=== PATIENT | female | born 1945 | race Caucasian/White ===

== ENCOUNTER 2020-01-14 07:48 | Inpatient (IN) ==
[2020-01-14] MEDS ORDERED: CeFAZolin Syr 2,000MG/20 ML 2,000 MG/20 ML SYRINGE IVPB ONE (08:36)
[2020-01-14] MEDS ORDERED: Dexamethasone 4 MG/ML VIAL ONE (08:38)
[2020-01-14] MEDS ORDERED: Lidocaine -MPF 2% 2 ML VIAL ONE (08:38)
[2020-01-14] MEDS ORDERED: Ondansetron 4 MG/2 ML VIAL ONE (08:38)
[2020-01-14] MEDS ORDERED: *HR* Rocuronium Bromide 50 MG/5 ML VIAL ONE (08:38)
[2020-01-14] MEDS ORDERED: *HR* FentaNYL (PF) 100 MCG/2 ML VIAL ONE (08:38)
[2020-01-14] MEDS ORDERED: *HR* Propofol 200 MG/20 ML VIAL IVP ONE (08:38)
[2020-01-14] MEDS ORDERED: Ipratropium/Albuterol Neb 3 ML IH ONE (08:41)
[2020-01-14] MEDS ORDERED: Famotidine 20 MG/2 ML VIAL IVP ONE (08:41)
[2020-01-14] MEDS ORDERED: Acetaminophen IV 1,000 MG/100 ML INFUS..BTL IVPB ONE (08:41)
[2020-01-14] MEDS ORDERED: Ringers Solution, Lactated 1,000 ML IVC SCH ×2 (08:45→12:39)
[2020-01-14] MEDS ORDERED: Albuterol 2.5 MG/3 ML NEBULIZER IH PRN ×2 (08:48→12:39)
[2020-01-14] MEDS ORDERED: *HR* OxyCODONE Immed Rel 5 MG TABLET PO PRN (08:48)
[2020-01-14] MEDS ORDERED: Ondansetron 4 MG/2 ML VIAL IVP ONE (08:48)
[2020-01-14] MEDS ORDERED: *HR* Promethazine 25 MG/ML VIAL IVP PRN (08:48)
[2020-01-14 09:27] LABS: Adenovirus Not Detected (Not Detect); Coronavirus 229E Not Detected (Not Detect); Coronavirus HKU1 Not Detected (Not Detect); Coronavirus NL63 Not Detected (Not Detect); Coronavirus OC43 Not Detected (Not Detect)
[2020-01-14 09:28] LABS: Bordetella Pertussis Not Detected (Not Detect); Chlamydophila pneumoniae Not Detected (Not Detect); Human Metapneumovirus Not Detected (Not Detect); Human Rhinovirus/Enterovirus Not Detected (Not Detect); Influenza A Subtype 2009 H1 Not Detected (Not Detect); Influenza B Not Detected (Not Detect); Mycoplasma pneumoniae Not Detected (Not Detect); Parainfluenza Virus 1 Not Detected (Not Detect); Parainfluenza Virus 2 Not Detected (Not Detect); Parainfluenza Virus 3 Not Detected (Not Detect); Parainfluenza Virus 4 Not Detected (Not Detect); Respiratory Syncytial Virus Not Detected (Not Detect); SARS-CoV-2 Not Detected (Not Detect)
[2020-01-14] MEDS ORDERED: Lidocaine HCL 4 ML Topical Solution (Laryng-O-Jet Kit Sterile Pak) TP ONE (09:39)
[2020-01-14] MEDS ORDERED: *HR* PHENYLEPHRINE 1,000 MCG/10 ML SYRINGE IVP ONE (10:20)
[2020-01-14] MEDS ORDERED: Ondansetron 4 MG/2 ML VIAL IVP PRN ×2 (11:32→12:39)
[2020-01-14] MEDS ORDERED: *HR* HYDROcodone/Acet 5/325 mg TABLET PO PRN (11:32)
[2020-01-14] MEDS ORDERED: Naloxone 0.4 MG/ML INJ IVP PRN ×2 (11:32→12:39)
[2020-01-14] MEDS: *HR* FentaNYL (PF) 100 MCG/2 ML VIAL IVP PRN ×3 (11:44→12:07)
[2020-01-14] MEDS ORDERED: 0.9 % Sodium Chloride 1,000 ML IVC SCH (11:45)
[2020-01-14] MEDS ORDERED: Ketorolac 15 MG/ML VIAL IVP SCH (12:00)
[2020-01-14] MEDS ORDERED: Ipratropium/Albuterol Neb 3 ML IH SCH (12:00)
[2020-01-14] MEDS: 0.9 % Sodium Chloride 1,000 ML IVC SCH (12:59)
[2020-01-14] MEDS ORDERED: *HR* Heparin 5,000 UNIT/ML VIAL SQ SCH (14:00)
[2020-01-14] MEDS: *HR* Heparin 5,000 UNIT/ML VIAL SQ SCH ×2 (14:14→20:52)
[2020-01-14] MEDS: *HR* HYDROcodone/Acet 5/325 mg TABLET PO PRN (14:14)
[2020-01-14] MEDS ORDERED: Gabapentin 300 MG CAPSULE PO SCH (15:00)
[2020-01-14] MEDS: Ipratropium/Albuterol Neb 3 ML IH SCH ×3 (15:31→23:50)
[2020-01-14] MEDS: Gabapentin 300 MG CAPSULE PO SCH ×2 (16:06→20:52)
[2020-01-14] MEDS: Ketorolac 15 MG/ML VIAL IVP SCH (18:52)
[2020-01-14] MEDS: Sennosides/Docusate Sodium TABLET PO SCH (20:52)
[2020-01-14] MEDS: Famotidine 20 MG TABLET PO SCH (20:52)
[2020-01-14] MEDS: Fluticasone Propionate Nasal 50 MCG/SPRAY BOTTLE NS SCH (20:53)
[2020-01-14] MEDS ORDERED: Sennosides/Docusate Sodium TABLET PO SCH (21:00)
[2020-01-14] MEDS ORDERED: Fluticasone Propionate Nasal 50 MCG/SPRAY BOTTLE NS SCH (21:00)
[2020-01-14] MEDS ORDERED: Famotidine 20 MG TABLET PO SCH (21:00)
[2020-01-15] MEDS: Ketorolac 15 MG/ML VIAL IVP SCH ×4 (00:33→18:12)
[2020-01-15] MEDS: 0.9 % Sodium Chloride 1,000 ML IVC SCH (02:01)
[2020-01-15] MEDS: Ipratropium/Albuterol Neb 3 ML IH SCH ×6 (03:37→23:43)
[2020-01-15] MEDS: *HR* HYDROcodone/Acet 5/325 mg TABLET PO PRN ×3 (04:10→20:55)
[2020-01-15 05:46] LABS: Hematocrit 39.8 % (35.3-44.9); Hemoglobin 12.1 g/dL (11.5-15.4); Mean Corpuscular HGB Conc 30.4 g/dL (31.6-35.5); Mean Corpuscular Volume 88.8 fL (83.0-100.0); Mean Platelet Volume 11.4 fL (9.4-12.4); Platelet Count 185 K/mcL (140-400); Red Blood Count 4.48 M/mcL (3.82-4.97); Red Cell Distribution Width 14.6 % (11.5-14.5); White Blood Count 19.8 K/mcL (4.3-11.1)
[2020-01-15] MEDS: *HR* Heparin 5,000 UNIT/ML VIAL SQ SCH ×3 (06:34→20:55)
[2020-01-15 07:10] LABS: % Iron Saturation 15 % (15-50); BUN/Creatinine Ratio 26 (6-26); Blood Urea Nitrogen 15 mg/dL (8-23); Calcium 9.3 mg/dL (8.6-10.3); Carbon Dioxide 23 mEq/L (23-29); Chloride 99 mEq/L (98-107); Glucose 127 mg/dL (70-105); Iron 49 mcg/dL (50-170); Magnesium 1.5 mg/dL (1.6-2.6); Osmolality,Calculated 280 (280-300); Sodium 134 mEq/L (136-145); Transferrin 234 mg/dL (203-362); eGFR For African Americans > 60 (> 60); eGFR For Non-African Americans > 60 (> 60)
[2020-01-15] MEDS: Sennosides/Docusate Sodium TABLET PO SCH ×2 (07:41→20:40)
[2020-01-15] MEDS: Famotidine 20 MG TABLET PO SCH ×2 (07:41→20:40)
[2020-01-15] MEDS: Gabapentin 300 MG CAPSULE PO SCH ×3 (07:41→20:39)
[2020-01-15] MEDS: Losartan/HCTZ 50-12.5 TABLET PO SCH (07:41)
[2020-01-15] MEDS: Fluticasone Propionate Nasal 50 MCG/SPRAY BOTTLE NS SCH ×2 (07:42→20:41)
[2020-01-15] MEDS: DilTIAZem CD (24hr) 120 MG CAP.ER.24H PO SCH (07:42)
[2020-01-15] MEDS: Furosemide 40 MG TABLET PO SCH (07:42)
[2020-01-15] MEDS ORDERED: (Roflumilast [Daliresp] 500 MCG) PO SCH (09:00)
[2020-01-15] MEDS ORDERED: Furosemide 40 MG TABLET PO SCH (09:00)
[2020-01-15] MEDS ORDERED: Losartan/HCTZ 50-12.5 TABLET PO SCH (09:00)
[2020-01-15] MEDS ORDERED: DilTIAZem CD (24hr) 120 MG CAP.ER.24H PO SCH (09:00)
[2020-01-15] MEDS ORDERED: Roflumilast [Daliresp] 500 MCG PO SCH (09:00)
[2020-01-16] MEDS: Ketorolac 15 MG/ML VIAL IVP SCH ×4 (00:05→17:13)
[2020-01-16] MEDS: Ipratropium/Albuterol Neb 3 ML IH SCH ×6 (04:41→23:27)
[2020-01-16] MEDS: *HR* Heparin 5,000 UNIT/ML VIAL SQ SCH ×3 (05:37→19:41)
[2020-01-16] MEDS: Gabapentin 300 MG CAPSULE PO SCH ×3 (07:59→19:41)
[2020-01-16] MEDS: Losartan/HCTZ 50-12.5 TABLET PO SCH (07:59)
[2020-01-16] MEDS: *HR* HYDROcodone/Acet 5/325 mg TABLET PO PRN ×2 (08:00→19:49)
[2020-01-16] MEDS: DilTIAZem CD (24hr) 120 MG CAP.ER.24H PO SCH (08:01)
[2020-01-16] MEDS: Famotidine 20 MG TABLET PO SCH ×2 (08:01→19:42)
[2020-01-16] MEDS: Furosemide 40 MG TABLET PO SCH (08:01)
[2020-01-16] MEDS: Sennosides/Docusate Sodium TABLET PO SCH ×2 (08:01→19:42)
[2020-01-16] MEDS: Fluticasone Propionate Nasal 50 MCG/SPRAY BOTTLE NS SCH ×2 (08:02→19:42)
[2020-01-17] MEDS: Ketorolac 15 MG/ML VIAL IVP SCH ×2 (00:53→05:01)
[2020-01-17] MEDS: Ipratropium/Albuterol Neb 3 ML IH SCH ×2 (04:02→07:29)
[2020-01-17] MEDS: *HR* Heparin 5,000 UNIT/ML VIAL SQ SCH (05:01)
[2020-01-17 06:33] VITALS: BP 121/57
[2020-01-17] MEDS: DilTIAZem CD (24hr) 120 MG CAP.ER.24H PO SCH (07:43)
[2020-01-17] MEDS: Famotidine 20 MG TABLET PO SCH (07:43)
[2020-01-17] MEDS: Gabapentin 300 MG CAPSULE PO SCH (07:43)
[2020-01-17] MEDS: Sennosides/Docusate Sodium TABLET PO SCH (07:43)
[2020-01-17] MEDS: Furosemide 40 MG TABLET PO SCH (07:43)
[2020-01-17] MEDS: Losartan/HCTZ 50-12.5 TABLET PO SCH (07:43)
[2020-01-17] MEDS: *HR* HYDROcodone/Acet 5/325 mg TABLET PO PRN (07:43)
[2020-01-17] MEDS: Fluticasone Propionate Nasal 50 MCG/SPRAY BOTTLE NS SCH (07:45)
== END 2020-01-17 10:40 | disposition home or self-care (01) | DRG 165 ==
LOC: SAMDAY 07:48 → 2NNU 12:23
PROVIDERS: ADMIT Thoracic Surgery (Cardiothoracic Vascular Surgery); ATTEND Thoracic Surgery (Cardiothoracic Vascular Surgery)

== ENCOUNTER 2020-02-02 16:16 | Inpatient (IN) ==
[2020-02-02] MEDS ORDERED: 0.9 % Sodium Chloride 1,000 ML IVC SCH (19:15)
[2020-02-02 19:39] LABS: Basophils # 0.1 K/mcL (0.0-0.2); Basophils % 0.2 %; Eosinophils % 0.1 %; Hematocrit 42.6 % (35.3-44.9); Hemoglobin 12.8 g/dL (11.5-15.4); Immature Granulocytes % 0.5 % (0-4); Lymphocytes # 1.1 K/mcL (0.6-4.6); Lymphocytes % 4.5 %; Mean Corpuscular Hemoglobin 26.9 pg (28.0-33.3); Mean Corpuscular Volume 89.7 fL (83.0-100.0); Mean Platelet Volume 10.5 fL (9.4-12.4); Monocytes # 1.2 K/mcL (0.0-1.3); Monocytes % 4.7 %; Neutrophils # 22.8 K/mcL (1.6-8.9); Platelet Count 331 K/mcL (140-400); Red Blood Count 4.75 M/mcL (3.82-4.97); Red Cell Distribution Width 14.3 % (11.5-14.5); White Blood Count 25.3 K/mcL (4.3-11.1)
[2020-02-02 19:54] LABS: Toxic Granulation Present (Not Present)
[2020-02-02 19:56] LABS: BUN/Creatinine Ratio 33 (6-26); Blood Urea Nitrogen 25 mg/dL (8-23); Calcium 8.9 mg/dL (8.6-10.3); Carbon Dioxide 35 mEq/L (23-29); Chloride 95 mEq/L (98-107); Glucose 177 mg/dL (70-105); Osmolality,Calculated 289 (280-300); Potassium 4.7 mEq/L (3.5-5.1); Sodium 135 mEq/L (136-145); eGFR For African Americans > 60 (> 60); eGFR For Non-African Americans > 60 (> 60)
[2020-02-02] MEDS: Albumin Human 5% 12.5 GM/250 ML IV.SOLN IVC SCH (21:02)
[2020-02-03] MEDS: Albumin Human 5% 12.5 GM/250 ML IV.SOLN IVC SCH (01:15)
[2020-02-03] MEDS ORDERED: ALPRAZolam 0.25 MG TABLET PO PRN ×2 (10:20→15:45)
[2020-02-03] MEDS ORDERED: Ampicillin/Sulbactam 3,000 MG in 0.9 % Sodium Chloride Mini Bag 100 ML IVPB SCH (10:30)
[2020-02-03] MEDS ORDERED: Budesonide/Formoterol 80/4.5 1 PUFF INH IH SCH (10:45)
[2020-02-03] MEDS ORDERED: *HR* FentaNYL (PF) 100 MCG/2 ML VIAL IVP PRN (11:59)
[2020-02-03] MEDS ORDERED: Ondansetron 4 MG/2 ML VIAL IVP PRN (11:59)
[2020-02-03] MEDS ORDERED: Ipratropium/Albuterol Neb 3 ML IH SCH (12:00)
[2020-02-03] MEDS ORDERED: *HR* FentaNYL (PF) 100 MCG/2 ML VIAL ONE (12:22)
[2020-02-03] MEDS ORDERED: *HR* Propofol 200 MG/20 ML VIAL IVP ONE (12:22)
[2020-02-03] MEDS ORDERED: *HR* Succinylcholine 200 MG/10 ML VIAL IVP ONE (12:23)
[2020-02-03] MEDS ORDERED: Lidocaine -MPF 2% 2 ML VIAL ONE (12:23)
[2020-02-03] MEDS ORDERED: *HR* Rocuronium Bromide 50 MG/5 ML VIAL ONE (12:24)
[2020-02-03] MEDS ORDERED: Acetaminophen IV 1,000 MG/100 ML INFUS..BTL ONE (12:26)
[2020-02-03] MEDS ORDERED: Albumin Human 5% 0 GM/0 ML IV.SOLN ONE (12:37)
[2020-02-03] MEDS ORDERED: *HR* Phenylephrine 10 MG/ML VIAL ONE (12:39)
[2020-02-03] MEDS ORDERED: Dexamethasone 4 MG/ML VIAL ONE (13:33)
[2020-02-03] MEDS ORDERED: Ondansetron 4 MG/2 ML VIAL ONE (13:33)
[2020-02-03] MEDS ORDERED: Naloxone 0.4 MG/ML INJ IVP PRN (15:45)
[2020-02-03] MEDS ORDERED: Ipratropium/Albuterol Neb 3 ML ONE (15:49)
[2020-02-03] MEDS: Ipratropium/Albuterol Neb 3 ML IH SCH ×2 (16:03→19:49)
[2020-02-03] MEDS: 0.9 % Sodium Chloride 1,000 ML IVC SCH (16:10)
[2020-02-03] MEDS: *HR* HYDROcodone/Acet 5/325 mg TABLET PO PRN ×2 (16:10→22:13)
[2020-02-03] MEDS: Gabapentin 300 MG CAPSULE PO SCH ×2 (16:10→20:41)
[2020-02-03] MEDS: Ampicillin/Sulbactam 3,000 MG in 0.9 % Sodium Chloride Mini Bag 100 ML IVPB SCH (18:18)
[2020-02-03] MEDS: Budesonide/Formoterol 80/4.5 1 PUFF INH IH SCH (19:49)
[2020-02-03] MEDS: *HR* Heparin 5,000 UNIT/ML VIAL SQ SCH (20:41)
[2020-02-03] MEDS: Sennosides/Docusate Sodium TABLET PO SCH (20:41)
[2020-02-03] MEDS: Famotidine 20 MG TABLET PO SCH (20:41)
[2020-02-04] MEDS: Ampicillin/Sulbactam 3,000 MG in 0.9 % Sodium Chloride Mini Bag 100 ML IVPB SCH ×4 (00:51→18:12)
[2020-02-04] MEDS: Ipratropium/Albuterol Neb 3 ML IH SCH ×7 (01:18→23:22)
[2020-02-04 02:30] LABS: Hematocrit 29.2 % (35.3-44.9); Hemoglobin 8.7 g/dL (11.5-15.4); Mean Corpuscular HGB Conc 29.8 g/dL (31.6-35.5); Mean Corpuscular Hemoglobin 27.1 pg (28.0-33.3); Mean Platelet Volume 11.3 fL (9.4-12.4); Platelet Count 280 K/mcL (140-400); Red Blood Count 3.21 M/mcL (3.82-4.97); Red Cell Distribution Width 14.5 % (11.5-14.5); White Blood Count 23.4 K/mcL (4.3-11.1)
[2020-02-04 02:48] LABS: BUN/Creatinine Ratio 39 (6-26); Blood Urea Nitrogen 32 mg/dL (8-23); Calcium 8.8 mg/dL (8.6-10.3); Carbon Dioxide 31 mEq/L (23-29); Chloride 97 mEq/L (98-107); Glucose 210 mg/dL (70-105); Magnesium 2.2 mg/dL (1.6-2.6); Osmolality,Calculated 293 (280-300); Sodium 135 mEq/L (136-145); eGFR For African Americans > 60 (> 60); eGFR For Non-African Americans > 60 (> 60)
[2020-02-04] MEDS: 0.9 % Sodium Chloride 1,000 ML IVC SCH ×2 (03:53→15:34)
[2020-02-04] MEDS ORDERED: Talc (sterile) 4 GM, 0.9 % Sodium Chloride 50 ML, Syringe CATH TIP 1 EACH IX ONE (06:00)
[2020-02-04] MEDS: *HR* HYDROcodone/Acet 5/325 mg TABLET PO PRN ×2 (06:23→11:31)
[2020-02-04] MEDS: *HR* Heparin 5,000 UNIT/ML VIAL SQ SCH ×3 (06:24→21:20)
[2020-02-04] MEDS: Budesonide/Formoterol 80/4.5 1 PUFF INH IH SCH ×2 (07:56→20:25)
[2020-02-04] MEDS: Gabapentin 300 MG CAPSULE PO SCH ×3 (08:18→21:20)
[2020-02-04] MEDS: Sennosides/Docusate Sodium TABLET PO SCH ×2 (08:18→21:20)
[2020-02-04] MEDS: Famotidine 20 MG TABLET PO SCH ×2 (08:18→21:20)
[2020-02-04] MEDS ORDERED: DilTIAZem CD (24hr) 120 MG CAP.ER.24H PO SCH ×2 (09:00)
[2020-02-04] MEDS: Albumin Human 5% 12.5 GM/250 ML IV.SOLN IVC SCH ×2 (13:31→19:30)
[2020-02-05] MEDS: Ampicillin/Sulbactam 3,000 MG in 0.9 % Sodium Chloride Mini Bag 100 ML IVPB SCH ×5 (00:12→23:56)
[2020-02-05] MEDS: Ipratropium/Albuterol Neb 3 ML IH SCH ×6 (03:54→23:10)
[2020-02-05] MEDS: 0.9 % Sodium Chloride 1,000 ML IVC SCH ×2 (05:24→12:22)
[2020-02-05] MEDS: *HR* Heparin 5,000 UNIT/ML VIAL SQ SCH ×3 (05:25→21:11)
[2020-02-05 06:28] LABS: BUN/Creatinine Ratio 62 (6-26); Blood Urea Nitrogen 32 mg/dL (8-23); Calcium 8.7 mg/dL (8.6-10.3); Carbon Dioxide 33 mEq/L (23-29); Chloride 100 mEq/L (98-107); Glucose 134 mg/dL (70-105); Osmolality,Calculated 291 (280-300); Potassium 3.9 mEq/L (3.5-5.1); Sodium 136 mEq/L (136-145); eGFR For African Americans > 60 (> 60); eGFR For Non-African Americans > 60 (> 60)
[2020-02-05] MEDS: Budesonide/Formoterol 80/4.5 1 PUFF INH IH SCH ×2 (07:51→23:10)
[2020-02-05] MEDS: Gabapentin 300 MG CAPSULE PO SCH ×3 (08:58→20:40)
[2020-02-05] MEDS: Famotidine 20 MG TABLET PO SCH ×2 (08:58→21:09)
[2020-02-05] MEDS: Sennosides/Docusate Sodium TABLET PO SCH ×2 (08:59→20:40)
[2020-02-05] MEDS: Ondansetron 4 MG/2 ML VIAL IVP PRN ×2 (08:59→17:09)
[2020-02-05] MEDS: *HR* HYDROcodone/Acet 5/325 mg TABLET PO PRN ×2 (09:00→12:55)
[2020-02-05 09:20] LABS: Hematocrit 20.5 % (35.3-44.9); Hemoglobin 6.3 g/dL (11.5-15.4); Mean Corpuscular HGB Conc 30.7 g/dL (31.6-35.5); Mean Corpuscular Hemoglobin 27.8 pg (28.0-33.3); Mean Corpuscular Volume 90.3 fL (83.0-100.0); Mean Platelet Volume 11.5 fL (9.4-12.4); Platelet Count 197 K/mcL (140-400); Red Blood Count 2.27 M/mcL (3.82-4.97); White Blood Count 17.4 K/mcL (4.3-11.1)
[2020-02-05] MEDS ORDERED: 0.9 % Sodium Chloride 250 ML ONE ×2 (10:57→14:21)
[2020-02-05] MEDS ORDERED: Furosemide 20 MG/2 ML VIAL IVP ONE (11:36)
[2020-02-05] MEDS ORDERED: *HR* Propofol 200 MG/20 ML VIAL IVP ONE (15:07)
[2020-02-05] MEDS ORDERED: *HR* Succinylcholine 200 MG/10 ML VIAL IVP ONE (15:07)
[2020-02-05] MEDS ORDERED: Furosemide 20 MG/2 ML VIAL IVP STA (18:50)
[2020-02-05] MEDS ORDERED: Artificial Tears SOLN 15 ML BOTTLE BOTH EYES PRN (19:40)
[2020-02-05] MEDS: Midazolam HCl 50 MG/100 ML IV.SOLN IVC SCH (20:00)
[2020-02-05] MEDS: FentaNYL (PF) 1,000 MCG/100 ML IV.SOLN IVC SCH (20:00)
[2020-02-05 20:47] LABS: ABG Base Excess 10 mEq/L (-2 to 3); ABG HCO3 37 mEq/L (21-27); ABG Oxygen Saturation 100 % (95-98); ABG PCO2 68 mmHg (35-45); ABG PH 7.35 pH Units (7.32-7.45); ABG PO2 191 mmHg (85-104); ABG TCO2 39 mEq/L (20-26); Blood Gas VT 480 cc
[2020-02-05 20:50] LABS: VBG Ionized Calcium 1.04 mmol/L (1.15-1.35)
[2020-02-05 20:52] LABS: Basophils % 0.1 %; Eosinophils % 0.3 %; Hematocrit 27.9 % (35.3-44.9); Hemoglobin 8.8 g/dL (11.5-15.4); Immature Granulocytes % 0.6 % (0-4); Lymphocytes # 0.7 K/mcL (0.6-4.6); Lymphocytes % 4.6 %; Mean Corpuscular HGB Conc 31.5 g/dL (31.6-35.5); Mean Corpuscular Hemoglobin 27.9 pg (28.0-33.3); Mean Corpuscular Volume 88.6 fL (83.0-100.0); Mean Platelet Volume 11.4 fL (9.4-12.4); Monocytes # 1.7 K/mcL (0.0-1.3); Monocytes % 11.5 %; Platelet Count 182 K/mcL (140-400); Red Blood Count 3.15 M/mcL (3.82-4.97); Segmented Neutrophils % 82.9 %; White Blood Count 14.5 K/mcL (4.3-11.1)
[2020-02-05 21:06] LABS: BUN/Creatinine Ratio 53 (6-26); Blood Urea Nitrogen 24 mg/dL (8-23); Calcium 8.4 mg/dL (8.6-10.3); Carbon Dioxide 33 mEq/L (23-29); Chloride 101 mEq/L (98-107); Glucose 117 mg/dL (70-105); Osmolality,Calculated 293 (280-300); Phosphorous 1.7 mg/dL (2.7-4.5); Potassium 3.8 mEq/L (3.5-5.1); Sodium 139 mEq/L (136-145); eGFR For African Americans > 60 (> 60); eGFR For Non-African Americans > 60 (> 60)
[2020-02-05] MEDS: Chlorhexidine Rinse 15 ML MOUTHWASH MM SCH (21:10)
[2020-02-05] MEDS: Artificial Tears SOLN 15 ML BOTTLE BOTH EYES SCH (21:11)
[2020-02-06] MEDS: Artificial Tears SOLN 15 ML BOTTLE BOTH EYES SCH ×7 (00:08→23:49)
[2020-02-06] MEDS ORDERED: 0.9 % Sodium Chloride 1,000 ML IVC ONE (02:23)
[2020-02-06] MEDS: FentaNYL (PF) 1,000 MCG/100 ML IV.SOLN IVC SCH ×2 (03:08→15:14)
[2020-02-06] MEDS: Ipratropium/Albuterol Neb 3 ML IH SCH ×6 (03:47→23:36)
[2020-02-06 04:26] LABS: ABG Base Excess 10 mEq/L (-2 to 3); ABG HCO3 36 mEq/L (21-27); ABG Oxygen Saturation 97 % (95-98); ABG PCO2 65 mmHg (35-45); ABG PH 7.35 pH Units (7.32-7.45); ABG PO2 97 mmHg (85-104); ABG TCO2 38 mEq/L (20-26); Blood Gas VT 480 cc
[2020-02-06 04:52] LABS: Hemoglobin 7.9 g/dL (11.5-15.4); Mean Corpuscular HGB Conc 30.4 g/dL (31.6-35.5); Mean Corpuscular Hemoglobin 27.4 pg (28.0-33.3); Mean Corpuscular Volume 90.3 fL (83.0-100.0); Mean Platelet Volume 11.4 fL (9.4-12.4); Platelet Count 158 K/mcL (140-400); Red Blood Count 2.88 M/mcL (3.82-4.97); Red Cell Distribution Width 15.4 % (11.5-14.5); White Blood Count 8.8 K/mcL (4.3-11.1)
[2020-02-06 05:15] LABS: BUN/Creatinine Ratio 51 (6-26); Blood Urea Nitrogen 23 mg/dL (8-23); Carbon Dioxide 31 mEq/L (23-29); Chloride 104 mEq/L (98-107); Glucose 105 mg/dL (70-105); Osmolality,Calculated 296 (280-300); Potassium 3.8 mEq/L (3.5-5.1); Sodium 141 mEq/L (136-145); eGFR For African Americans > 60 (> 60); eGFR For Non-African Americans > 60 (> 60)
[2020-02-06] MEDS: 0.9 % Sodium Chloride 1,000 ML IVC SCH (05:52)
[2020-02-06] MEDS: *HR* Heparin 5,000 UNIT/ML VIAL SQ SCH ×3 (05:55→22:17)
[2020-02-06] MEDS: Ampicillin/Sulbactam 3,000 MG in 0.9 % Sodium Chloride Mini Bag 100 ML IVPB SCH ×4 (05:55→23:45)
[2020-02-06] MEDS: Famotidine 20 MG TABLET PO SCH ×2 (07:24→20:02)
[2020-02-06] MEDS: DilTIAZem CD (24hr) 120 MG CAP.ER.24H PO SCH (07:24)
[2020-02-06] MEDS: Chlorhexidine Rinse 15 ML MOUTHWASH MM SCH ×2 (07:28→20:02)
[2020-02-06] MEDS: Budesonide/Formoterol 80/4.5 1 PUFF INH IH SCH ×2 (07:44→19:48)
[2020-02-06] MEDS: Pantoprazole 40 MG VIAL IVP SCH (08:12)
[2020-02-06] MEDS: Gabapentin 300 MG CAPSULE PO SCH (08:13)
[2020-02-06] MEDS: Sennosides/Docusate Sodium TABLET PO SCH (08:13)
[2020-02-06] MEDS ORDERED: Potassium Phosphate 44 MEQ in 0.9 % Sodium Chloride 250 ML IVPB ONE (09:23)
[2020-02-06] MEDS: Sennosides/Docusate Sodium TABLET GTUBE SCH (20:03)
[2020-02-06] MEDS: Midazolam HCl 50 MG/100 ML IV.SOLN IVC SCH (20:34)
[2020-02-07] MEDS: 0.9 % Sodium Chloride 1,000 ML IVC SCH ×2 (01:44→19:54)
[2020-02-07] MEDS: Ipratropium/Albuterol Neb 3 ML IH SCH ×6 (03:46→23:45)
[2020-02-07] MEDS: Artificial Tears SOLN 15 ML BOTTLE BOTH EYES SCH ×2 (03:54→07:07)
[2020-02-07 04:41] LABS: Hematocrit 24.7 % (35.3-44.9); Hemoglobin 7.4 g/dL (11.5-15.4); Mean Corpuscular Hemoglobin 27.3 pg (28.0-33.3); Mean Corpuscular Volume 91.1 fL (83.0-100.0); Mean Platelet Volume 11.2 fL (9.4-12.4); Platelet Count 185 K/mcL (140-400); Red Blood Count 2.71 M/mcL (3.82-4.97); Red Cell Distribution Width 15.5 % (11.5-14.5)
[2020-02-07 04:58] LABS: ABG Base Excess 9 mEq/L (-2 to 3); ABG HCO3 35 mEq/L (21-27); ABG Oxygen Saturation 94 % (95-98); ABG PCO2 58 mmHg (35-45); ABG PO2 73 mmHg (85-104); ABG TCO2 37 mEq/L (20-26); Blood Gas VT 500 cc
[2020-02-07 05:00] LABS: BUN/Creatinine Ratio 62 (6-26); Blood Urea Nitrogen 24 mg/dL (8-23); Calcium 8.5 mg/dL (8.6-10.3); Carbon Dioxide 33 mEq/L (23-29); Chloride 105 mEq/L (98-107); Glucose 102 mg/dL (70-105); Osmolality,Calculated 300 (280-300); Potassium 3.7 mEq/L (3.5-5.1); Sodium 143 mEq/L (136-145); eGFR For African Americans > 60 (> 60); eGFR For Non-African Americans > 60 (> 60)
[2020-02-07] MEDS: Ampicillin/Sulbactam 3,000 MG in 0.9 % Sodium Chloride Mini Bag 100 ML IVPB SCH ×4 (05:41→23:49)
[2020-02-07] MEDS: *HR* Heparin 5,000 UNIT/ML VIAL SQ SCH ×3 (05:48→21:57)
[2020-02-07] MEDS: DilTIAZem CD (24hr) 120 MG CAP.ER.24H PO SCH (07:09)
[2020-02-07] MEDS: Budesonide/Formoterol 80/4.5 1 PUFF INH IH SCH ×2 (07:30→19:41)
[2020-02-07] MEDS: Famotidine 20 MG TABLET PO SCH (07:34)
[2020-02-07] MEDS: Sennosides/Docusate Sodium TABLET GTUBE SCH ×2 (07:34→19:54)
[2020-02-07] MEDS: Chlorhexidine Rinse 15 ML MOUTHWASH MM SCH (07:34)
[2020-02-07] MEDS: Pantoprazole 40 MG VIAL IVP SCH (08:00)
[2020-02-07] MEDS ORDERED: Furosemide 40 MG/4 ML VIAL IVP ONE (09:27)
[2020-02-07] MEDS ORDERED: Furosemide 20 MG/2 ML VIAL IVP ONE (18:03)
[2020-02-08] MEDS: Ipratropium/Albuterol Neb 3 ML IH SCH ×6 (03:25→23:42)
[2020-02-08] MEDS: *HR* Heparin 5,000 UNIT/ML VIAL SQ SCH ×3 (05:48→22:06)
[2020-02-08] MEDS: Ampicillin/Sulbactam 3,000 MG in 0.9 % Sodium Chloride Mini Bag 100 ML IVPB SCH ×4 (05:48→23:46)
[2020-02-08 06:52] LABS: Hematocrit 32.3 % (35.3-44.9); Mean Corpuscular Hemoglobin 27.6 pg (28.0-33.3); Mean Corpuscular Volume 91.8 fL (83.0-100.0); Mean Platelet Volume 10.6 fL (9.4-12.4); Platelet Count 240 K/mcL (140-400); Red Blood Count 3.52 M/mcL (3.82-4.97); Red Cell Distribution Width 15.2 % (11.5-14.5)
[2020-02-08 06:58] LABS: Hemoglobin 9.7 g/dL (11.5-15.4); White Blood Count 17.4 K/mcL (4.3-11.1)
[2020-02-08 07:13] LABS: BUN/Creatinine Ratio 62 (6-26); Blood Urea Nitrogen 21 mg/dL (8-23); Calcium 9.6 mg/dL (8.6-10.3); Carbon Dioxide 37 mEq/L (23-29); Chloride 100 mEq/L (98-107); Glucose 90 mg/dL (70-105); Magnesium 1.7 mg/dL (1.6-2.6); Osmolality,Calculated 305 (280-300); Potassium 3.5 mEq/L (3.5-5.1); Sodium 146 mEq/L (136-145); eGFR For African Americans > 60 (> 60); eGFR For Non-African Americans > 60 (> 60)
[2020-02-08] MEDS: *HR* HYDROmorphone (PF) 1 MG/ML SYRINGE IVP PRN (07:19)
[2020-02-08 08:14] LABS: ABG Base Excess 9 mEq/L (-2 to 3); ABG HCO3 35 mEq/L (21-27); ABG Oxygen Saturation 88 % (95-98); ABG PCO2 61 mmHg (35-45); ABG PH 7.37 pH Units (7.32-7.45); ABG PO2 59 mmHg (85-104); ABG TCO2 37 mEq/L (20-26)
[2020-02-08] MEDS: DilTIAZem CD (24hr) 120 MG CAP.ER.24H PO SCH (08:50)
[2020-02-08] MEDS: Sennosides/Docusate Sodium TABLET GTUBE SCH ×2 (08:51→19:50)
[2020-02-08] MEDS: Pantoprazole 40 MG VIAL IVP SCH (08:59)
[2020-02-08] MEDS: MethylPREDNISolone 40 MG/ML VIAL IVP SCH ×3 (08:59→23:48)
[2020-02-08] MEDS: acetaZOLAMIDE 250 MG in Water for inj. (sterile) 5 ML IVP SCH ×3 (09:00→23:47)
[2020-02-08] MEDS: Budesonide/Formoterol 80/4.5 1 PUFF INH IH SCH ×2 (10:30→20:39)
[2020-02-08] MEDS ORDERED: Lidocaine -MPF 1% 5 ML AMPUL INFILT ONE (15:04)
[2020-02-08] MEDS: 0.9 % Sodium Chloride 1,000 ML IVC SCH (19:50)
[2020-02-09] MEDS: Ipratropium/Albuterol Neb 3 ML IH SCH ×5 (04:22→20:19)
[2020-02-09 05:40] LABS: BUN/Creatinine Ratio 67 (6-26); Blood Urea Nitrogen 28 mg/dL (8-23); Calcium 9.6 mg/dL (8.6-10.3); Carbon Dioxide 30 mEq/L (23-29); Chloride 105 mEq/L (98-107); Glucose 118 mg/dL (70-105); Magnesium 1.9 mg/dL (1.6-2.6); Osmolality,Calculated 305 (280-300); Potassium 3.1 mEq/L (3.5-5.1); Sodium 144 mEq/L (136-145); eGFR For African Americans > 60 (> 60); eGFR For Non-African Americans > 60 (> 60)
[2020-02-09 05:42] LABS: Hematocrit 30.8 % (35.3-44.9); Hemoglobin 9.2 g/dL (11.5-15.4); Mean Corpuscular HGB Conc 29.9 g/dL (31.6-35.5); Mean Corpuscular Hemoglobin 27.3 pg (28.0-33.3); Mean Corpuscular Volume 91.4 fL (83.0-100.0); Mean Platelet Volume 11.6 fL (9.4-12.4); Platelet Count 258 K/mcL (140-400); Red Blood Count 3.37 M/mcL (3.82-4.97); Red Cell Distribution Width 15.3 % (11.5-14.5); White Blood Count 19.8 K/mcL (4.3-11.1)
[2020-02-09] MEDS: Ampicillin/Sulbactam 3,000 MG in 0.9 % Sodium Chloride Mini Bag 100 ML IVPB SCH ×4 (05:42→23:54)
[2020-02-09] MEDS: *HR* Heparin 5,000 UNIT/ML VIAL SQ SCH ×3 (05:42→21:11)
[2020-02-09] MEDS ORDERED: Potassium Chloride 40 MEQ/200 ML BAG IVPB PRN (06:17)
[2020-02-09] MEDS: Pantoprazole 40 MG VIAL IVP SCH (07:06)
[2020-02-09] MEDS: MethylPREDNISolone 40 MG/ML VIAL IVP SCH ×3 (07:07→23:54)
[2020-02-09] MEDS: DilTIAZem CD (24hr) 120 MG CAP.ER.24H PO SCH (07:07)
[2020-02-09] MEDS: Sennosides/Docusate Sodium TABLET GTUBE SCH ×2 (07:07→21:10)
[2020-02-09] MEDS: Budesonide/Formoterol 80/4.5 1 PUFF INH IH SCH ×2 (07:37→20:22)
[2020-02-09] MEDS: Potassium Chloride 40 MEQ/200 ML BAG IVPB PRN (08:16)
[2020-02-09] MEDS: *HR* HYDROmorphone (PF) 1 MG/ML SYRINGE IVP PRN (09:42)
[2020-02-09] MEDS: 0.9 % Sodium Chloride 1,000 ML IVC SCH (09:43)
[2020-02-09] MEDS ORDERED: Furosemide 20 MG/2 ML VIAL IVP ONE (11:33)
[2020-02-09] MEDS ORDERED: *HR* HYDROcodone/Acet 5/325 mg TABLET PO PRN (13:46)
[2020-02-09] MEDS: Gabapentin 300 MG CAPSULE PO SCH ×2 (14:27→21:10)
[2020-02-09 17:13] LABS: BUN/Creatinine Ratio 72 (6-26); Blood Urea Nitrogen 34 mg/dL (8-23); Calcium 9.9 mg/dL (8.6-10.3); Carbon Dioxide 30 mEq/L (23-29); Chloride 105 mEq/L (98-107); Glucose 116 mg/dL (70-105); Osmolality,Calculated 309 (280-300); Potassium 3.6 mEq/L (3.5-5.1); Sodium 145 mEq/L (136-145); eGFR For African Americans > 60 (> 60); eGFR For Non-African Americans > 60 (> 60)
[2020-02-10] MEDS: Ipratropium/Albuterol Neb 3 ML IH SCH ×6 (00:15→20:22)
[2020-02-10 04:16] LABS: Hematocrit 26.7 % (35.3-44.9); Hemoglobin 8.2 g/dL (11.5-15.4); Mean Corpuscular HGB Conc 30.7 g/dL (31.6-35.5); Mean Corpuscular Volume 91.1 fL (83.0-100.0); Mean Platelet Volume 11.3 fL (9.4-12.4); Platelet Count 247 K/mcL (140-400); Red Blood Count 2.93 M/mcL (3.82-4.97); Red Cell Distribution Width 15.4 % (11.5-14.5); White Blood Count 16.3 K/mcL (4.3-11.1)
[2020-02-10 05:03] LABS: BUN/Creatinine Ratio 90 (6-26); Blood Urea Nitrogen 35 mg/dL (8-23); Calcium 9.2 mg/dL (8.6-10.3); Carbon Dioxide 30 mEq/L (23-29); Chloride 104 mEq/L (98-107); Glucose 114 mg/dL (70-105); Magnesium 1.8 mg/dL (1.6-2.6); Osmolality,Calculated 303 (280-300); Potassium 3.4 mEq/L (3.5-5.1); Sodium 142 mEq/L (136-145); eGFR For African Americans > 60 (> 60); eGFR For Non-African Americans > 60 (> 60)
[2020-02-10] MEDS: *HR* Heparin 5,000 UNIT/ML VIAL SQ SCH ×3 (05:43→23:13)
[2020-02-10] MEDS: Potassium Chloride 40 MEQ/200 ML BAG IVPB PRN (05:44)
[2020-02-10] MEDS: Ampicillin/Sulbactam 3,000 MG in 0.9 % Sodium Chloride Mini Bag 100 ML IVPB SCH ×4 (05:44→23:13)
[2020-02-10] MEDS: Budesonide/Formoterol 80/4.5 1 PUFF INH IH SCH ×2 (07:17→20:22)
[2020-02-10] MEDS: DilTIAZem CD (24hr) 120 MG CAP.ER.24H PO SCH (07:56)
[2020-02-10] MEDS: Sennosides/Docusate Sodium TABLET GTUBE SCH ×2 (07:56→20:15)
[2020-02-10] MEDS: Gabapentin 300 MG CAPSULE PO SCH ×3 (07:56→20:15)
[2020-02-10] MEDS: MethylPREDNISolone 40 MG/ML VIAL IVP SCH ×3 (07:56→23:13)
[2020-02-10] MEDS: acetaZOLAMIDE 250 MG in Water for inj. (sterile) 5 ML IVP SCH ×2 (11:19→20:20)
[2020-02-10] MEDS: 0.9 % Sodium Chloride 1,000 ML IVC SCH (20:15)
[2020-02-11] MEDS: Ipratropium/Albuterol Neb 3 ML IH SCH ×7 (00:22→23:49)
[2020-02-11] MEDS: acetaZOLAMIDE 250 MG in Water for inj. (sterile) 5 ML IVP SCH (02:22)
[2020-02-11] MEDS: 0.9 % Sodium Chloride 1,000 ML IVC SCH (03:31)
[2020-02-11 04:30] LABS: Hematocrit 26.4 % (35.3-44.9); Mean Corpuscular HGB Conc 30.3 g/dL (31.6-35.5); Mean Corpuscular Hemoglobin 28.2 pg (28.0-33.3); Mean Platelet Volume 11.4 fL (9.4-12.4); Platelet Count 248 K/mcL (140-400); Red Blood Count 2.84 M/mcL (3.82-4.97); Red Cell Distribution Width 15.3 % (11.5-14.5); White Blood Count 14.7 K/mcL (4.3-11.1)
[2020-02-11 04:55] LABS: BUN/Creatinine Ratio 83 (6-26); Blood Urea Nitrogen 29 mg/dL (8-23); Calcium 8.8 mg/dL (8.6-10.3); Carbon Dioxide 27 mEq/L (23-29); Chloride 107 mEq/L (98-107); Glucose 128 mg/dL (70-105); Magnesium 1.9 mg/dL (1.6-2.6); Osmolality,Calculated 297 (280-300); Potassium 3.7 mEq/L (3.5-5.1); Sodium 140 mEq/L (136-145); eGFR For African Americans > 60 (> 60); eGFR For Non-African Americans > 60 (> 60)
[2020-02-11] MEDS: *HR* Heparin 5,000 UNIT/ML VIAL SQ SCH ×3 (05:24→21:19)
[2020-02-11] MEDS: Ampicillin/Sulbactam 3,000 MG in 0.9 % Sodium Chloride Mini Bag 100 ML IVPB SCH ×4 (05:25→23:57)
[2020-02-11] MEDS: Budesonide/Formoterol 80/4.5 1 PUFF INH IH SCH ×2 (07:20→20:19)
[2020-02-11] MEDS: Sennosides/Docusate Sodium TABLET GTUBE SCH (08:26)
[2020-02-11] MEDS: MethylPREDNISolone 40 MG/ML VIAL IVP SCH ×3 (08:27→23:56)
[2020-02-11] MEDS: Gabapentin 300 MG CAPSULE PO SCH ×3 (08:27→21:19)
[2020-02-11] MEDS: DilTIAZem CD (24hr) 120 MG CAP.ER.24H PO SCH (08:27)
[2020-02-11] MEDS ORDERED: Ondansetron 4 MG/2 ML VIAL IVP PRN (19:28)
[2020-02-11] MEDS ORDERED: Naloxone 0.4 MG/ML INJ IVP PRN (19:28)
[2020-02-11] MEDS ORDERED: *HR* HYDROcodone/Acet 5/325 mg TABLET PO PRN (19:28)
[2020-02-11] MEDS ORDERED: Budesonide/Formoterol 160/4.5 1 PUFF INH IH ONE (20:17)
[2020-02-11] MEDS ORDERED: Ipratropium/Albuterol Neb 3 ML ONE (20:17)
[2020-02-11] MEDS: Sennosides/Docusate Sodium TABLET PO SCH (23:45)
[2020-02-12] MEDS: Ipratropium/Albuterol Neb 3 ML IH SCH ×6 (04:09→23:44)
[2020-02-12 04:25] LABS: Hematocrit 26.6 % (35.3-44.9); Hemoglobin 8.1 g/dL (11.5-15.4); Mean Corpuscular HGB Conc 30.5 g/dL (31.6-35.5); Mean Platelet Volume 11.5 fL (9.4-12.4); Platelet Count 245 K/mcL (140-400); Red Blood Count 2.89 M/mcL (3.82-4.97); Red Cell Distribution Width 15.1 % (11.5-14.5); White Blood Count 12.8 K/mcL (4.3-11.1)
[2020-02-12 04:46] LABS: BUN/Creatinine Ratio 77 (6-26); Blood Urea Nitrogen 30 mg/dL (8-23); Carbon Dioxide 28 mEq/L (23-29); Chloride 108 mEq/L (98-107); Glucose 164 mg/dL (70-105); Magnesium 1.8 mg/dL (1.6-2.6); Osmolality,Calculated 300 (280-300); Potassium 4.2 mEq/L (3.5-5.1); Sodium 140 mEq/L (136-145); eGFR For African Americans > 60 (> 60); eGFR For Non-African Americans > 60 (> 60)
[2020-02-12] MEDS: *HR* Heparin 5,000 UNIT/ML VIAL SQ SCH ×3 (06:20→21:23)
[2020-02-12] MEDS: Ampicillin/Sulbactam 3,000 MG in 0.9 % Sodium Chloride Mini Bag 100 ML IVPB SCH ×3 (06:20→18:51)
[2020-02-12] MEDS: Budesonide/Formoterol 80/4.5 1 PUFF INH IH SCH ×2 (08:23→19:55)
[2020-02-12] MEDS: Sennosides/Docusate Sodium TABLET PO SCH ×2 (08:39→21:22)
[2020-02-12] MEDS: Gabapentin 300 MG CAPSULE PO SCH ×3 (08:40→21:23)
[2020-02-12] MEDS: DilTIAZem CD (24hr) 120 MG CAP.ER.24H PO SCH (08:40)
[2020-02-12] MEDS: MethylPREDNISolone 40 MG/ML VIAL IVP SCH ×2 (08:40→17:22)
[2020-02-13] MEDS: Ampicillin/Sulbactam 3,000 MG in 0.9 % Sodium Chloride Mini Bag 100 ML IVPB SCH ×4 (00:12→17:38)
[2020-02-13] MEDS: MethylPREDNISolone 40 MG/ML VIAL IVP SCH ×3 (00:12→16:05)
[2020-02-13] MEDS: Ipratropium/Albuterol Neb 3 ML IH SCH ×6 (03:38→23:35)
[2020-02-13] MEDS: *HR* Heparin 5,000 UNIT/ML VIAL SQ SCH ×3 (05:36→20:34)
[2020-02-13 06:10] LABS: BUN/Creatinine Ratio 73 (6-26); Blood Urea Nitrogen 29 mg/dL (8-23); Carbon Dioxide 29 mEq/L (23-29); Chloride 106 mEq/L (98-107); Glucose 129 mg/dL (70-105); Magnesium 1.5 mg/dL (1.6-2.6); Osmolality,Calculated 298 (280-300); Potassium 4.2 mEq/L (3.5-5.1); Sodium 140 mEq/L (136-145); eGFR For African Americans > 60 (> 60); eGFR For Non-African Americans > 60 (> 60)
[2020-02-13] MEDS: Sennosides/Docusate Sodium TABLET PO SCH ×2 (07:31→20:34)
[2020-02-13] MEDS: Gabapentin 300 MG CAPSULE PO SCH ×3 (07:31→20:35)
[2020-02-13] MEDS: DilTIAZem CD (24hr) 120 MG CAP.ER.24H PO SCH (07:31)
[2020-02-13 07:38] LABS: Hematocrit 27.8 % (35.3-44.9); Hemoglobin 8.6 g/dL (11.5-15.4); Mean Corpuscular HGB Conc 30.9 g/dL (31.6-35.5); Mean Corpuscular Hemoglobin 28.6 pg (28.0-33.3); Mean Corpuscular Volume 92.4 fL (83.0-100.0); Platelet Count 254 K/mcL (140-400); Red Blood Count 3.01 M/mcL (3.82-4.97); Red Cell Distribution Width 15.4 % (11.5-14.5); White Blood Count 15.1 K/mcL (4.3-11.1)
[2020-02-13] MEDS: Budesonide/Formoterol 80/4.5 1 PUFF INH IH SCH ×2 (08:17→19:45)
[2020-02-13] MEDS: Nystatin SUSP 5 ML UD.LIQ PO SCH (20:35)
[2020-02-14] MEDS: Sennosides/Docusate Sodium TABLET PO SCH ×3 (00:10→20:02)
[2020-02-14] MEDS: MethylPREDNISolone 40 MG/ML VIAL IVP SCH ×3 (00:37→17:36)
[2020-02-14] MEDS: Ampicillin/Sulbactam 3,000 MG in 0.9 % Sodium Chloride Mini Bag 100 ML IVPB SCH ×4 (00:38→17:35)
[2020-02-14] MEDS: Ipratropium/Albuterol Neb 3 ML IH SCH ×6 (03:24→22:58)
[2020-02-14] MEDS: *HR* Heparin 5,000 UNIT/ML VIAL SQ SCH ×2 (05:35→14:08)
[2020-02-14] MEDS: Budesonide/Formoterol 80/4.5 1 PUFF INH IH SCH ×2 (07:47→20:08)
[2020-02-14] MEDS: Nystatin SUSP 5 ML UD.LIQ PO SCH ×4 (08:21→20:34)
[2020-02-14] MEDS: Gabapentin 300 MG CAPSULE PO SCH ×3 (08:21→20:01)
[2020-02-14] MEDS: DilTIAZem CD (24hr) 120 MG CAP.ER.24H PO SCH (08:21)
[2020-02-14] MEDS: Furosemide 20 MG/2 ML VIAL IVP SCH (14:15)
[2020-02-15] MEDS: *HR* Heparin 5,000 UNIT/ML VIAL SQ SCH ×4 (00:56→21:03)
[2020-02-15] MEDS: MethylPREDNISolone 40 MG/ML VIAL IVP SCH ×2 (00:56→08:11)
[2020-02-15] MEDS: Ampicillin/Sulbactam 3,000 MG in 0.9 % Sodium Chloride Mini Bag 100 ML IVPB SCH ×4 (00:57→17:43)
[2020-02-15] MEDS: ALPRAZolam 0.25 MG TABLET PO PRN ×2 (00:58→21:02)
[2020-02-15] MEDS: Ipratropium/Albuterol Neb 3 ML IH SCH ×6 (03:55→23:43)
[2020-02-15 06:36] LABS: BUN/Creatinine Ratio 63 (6-26); Blood Urea Nitrogen 27 mg/dL (8-23); Calcium 8.5 mg/dL (8.6-10.3); Carbon Dioxide 35 mEq/L (23-29); Chloride 102 mEq/L (98-107); Glucose 161 mg/dL (70-105); Magnesium 2.2 mg/dL (1.6-2.6); Osmolality,Calculated 299 (280-300); Sodium 140 mEq/L (136-145); eGFR For African Americans > 60 (> 60); eGFR For Non-African Americans > 60 (> 60)
[2020-02-15] MEDS: Budesonide/Formoterol 80/4.5 1 PUFF INH IH SCH ×2 (07:50→20:07)
[2020-02-15] MEDS: Furosemide 20 MG/2 ML VIAL IVP SCH (08:11)
[2020-02-15] MEDS: DilTIAZem CD (24hr) 120 MG CAP.ER.24H PO SCH (08:11)
[2020-02-15] MEDS: Gabapentin 300 MG CAPSULE PO SCH ×3 (08:11→21:02)
[2020-02-15] MEDS: Nystatin SUSP 5 ML UD.LIQ PO SCH ×4 (08:11→21:03)
[2020-02-15] MEDS: Sennosides/Docusate Sodium TABLET PO SCH ×2 (08:11→21:03)
[2020-02-16] MEDS: Ampicillin/Sulbactam 3,000 MG in 0.9 % Sodium Chloride Mini Bag 100 ML IVPB SCH ×3 (01:20→12:35)
[2020-02-16] MEDS: Ipratropium/Albuterol Neb 3 ML IH SCH ×3 (03:33→11:13)
[2020-02-16] MEDS: *HR* Heparin 5,000 UNIT/ML VIAL SQ SCH (06:44)
[2020-02-16 07:07] LABS: BUN/Creatinine Ratio 66 (6-26); Blood Urea Nitrogen 29 mg/dL (8-23); Calcium 8.5 mg/dL (8.6-10.3); Carbon Dioxide 39 mEq/L (23-29); Chloride 102 mEq/L (98-107); Glucose 95 mg/dL (70-105); Magnesium 2.1 mg/dL (1.6-2.6); Osmolality,Calculated 296 (280-300); Potassium 3.9 mEq/L (3.5-5.1); Sodium 140 mEq/L (136-145); eGFR For African Americans > 60 (> 60); eGFR For Non-African Americans > 60 (> 60)
[2020-02-16 07:16] VITALS: BP 115/56
[2020-02-16] MEDS: Budesonide/Formoterol 80/4.5 1 PUFF INH IH SCH (07:31)
[2020-02-16] MEDS: Nystatin SUSP 5 ML UD.LIQ PO SCH (08:51)
[2020-02-16] MEDS: Gabapentin 300 MG CAPSULE PO SCH (08:51)
[2020-02-16] MEDS: Furosemide 20 MG/2 ML VIAL IVP SCH (08:51)
[2020-02-16] MEDS: Sennosides/Docusate Sodium TABLET PO SCH (08:51)
[2020-02-16] MEDS: DilTIAZem CD (24hr) 120 MG CAP.ER.24H PO SCH (08:51)
[2020-02-16] MEDS ORDERED: FLU Vac QV 20-21 (6Month+)/PF 0.5 ML SYRINGE IM ONE (08:55)
== END 2020-02-16 12:38 | disposition home health service (06) | DRG 981 ==
LOC: 2NNU → ICNU 02-05 19:48 → 2NNU 02-12 19:15
PROVIDERS: ADMIT Thoracic Surgery (Cardiothoracic Vascular Surgery); ATTEND Thoracic Surgery (Cardiothoracic Vascular Surgery)

== ENCOUNTER 2021-09-28 17:18 | Inpatient (IN) ==
[2021-09-28 18:10] LABS: Basophils # 0.1 K/mcL (0.0-0.2); Basophils % 0.4 %; Eosinophils # 0.2 K/mcL (0.0-0.6); Eosinophils % 0.9 %; Hematocrit 46.6 % (35.3-44.9); Hemoglobin 13.7 g/dL (11.5-15.4); Immature Granulocytes % 0.5 % (0-4); Lymphocytes # 2.1 K/mcL (0.6-4.6); Lymphocytes % 12.4 %; Mean Corpuscular HGB Conc 29.4 g/dL (31.6-35.5); Mean Corpuscular Hemoglobin 26.6 pg (28.0-33.3); Mean Corpuscular Volume 90.3 fL (83.0-100.0); Mean Platelet Volume 11.8 fL (9.4-12.4); Monocytes % 6.1 %; Neutrophils # 13.4 K/mcL (1.6-8.9); Nucleated Red Blood Cells 0.1 /100 WBC (0); Platelet Count 282 K/mcL (140-400); Red Blood Count 5.16 M/mcL (3.82-4.97); Red Cell Distribution Width 14.9 % (11.5-14.5); Segmented Neutrophils % 79.7 %; White Blood Count 16.8 K/mcL (4.3-11.1)
[2021-09-28 18:17] LABS: VBG HCO3 34 mEq/L (21-27); VBG PCO2 60 mmHg (41-51); VBG PH 7.37 pH Units (7.32-7.42); VBG PO2 50 mmHg (25-50)
[2021-09-28 18:29] LABS: BUN/Creatinine Ratio 18 (6-26); Blood Urea Nitrogen 14 mg/dL (8-23); Calcium 10.6 mg/dL (8.6-10.3); Carbon Dioxide 35 mEq/L (23-29); Chloride 97 mEq/L (98-107); Glucose 128 mg/dL (70-105); Osmolality,Calculated 294 (280-300); Potassium 4.1 mEq/L (3.5-5.1); Sodium 141 mEq/L (136-145); Troponin I < 0.03 ng/mL (< 0.04); eGFR For African Americans > 60 (> 60); eGFR For Non-African Americans > 60 (> 60)
[2021-09-28 20:05] LABS: Bilirubin,Urine Negative (Negative); Blood,Urine Negative (Negative); Calcium Oxalate Crystals,Urine Present per hpf; Clarity,Urine Turbid (Clear); Color,Urine Yellow (Yellow); Glucose,Urine (UA) Normal (Normal); Hyaline Casts,Urine Many per lpf (None Seen); Ketones,Urine Trace mg/dL (Negative); Leukocyte Esterase,Urine Moderate (Negative); Mucus,Urine Many per lpf (None-Few); Nitrite,Urine Negative (Negative); Protein,Urine 100 mg/dL (Neg-Trace); Specific Gravity,Urine > 1.030 (1.010-1.025); Squamous Epithelial Cell,Urine Moderate per hpf (None-Few)
[2021-09-28] MEDS ORDERED: cefTRIAXone 1,000 MG in 0.9 % Sodium Chloride 10 ML IVP ONE (20:08)
[2021-09-28 20:14] LABS: Alanine Aminotransferase 9 Units/L (7-52); Albumin 4.6 g/dL (3.5-5.7); Albumin/Globulin Ratio 1.4 (1.1-2.2); Alkaline Phosphatase 107 Units/L (34-104); Aspartate Amino Transferase 13 Units/L (13-39); Bilirubin,Indirect 0.2 mg/dL (0.0-1.0); Bilirubin,Total 0.2 mg/dL (0.3-1.0); Globulin 3.3 g/dL (2.4-3.5); Total Protein 7.9 g/dL (6.4-8.9)
[2021-09-28] MEDS ORDERED: 0.9 % Sodium Chloride 1,000 ML IV ONE (20:48)
[2021-09-28] MEDS ORDERED: Isovue-370 500 ML BOTTLE IVP ONE (21:06)
[2021-09-28] MEDS ORDERED: Acetaminophen 325 MG TABLET PO PRN (21:35)
[2021-09-28] MEDS ORDERED: Naloxone 0.4 MG/ML INJ IVP PRN (21:35)
[2021-09-28 22:59] LABS: Adenovirus Not Detected (Not Detect); Bordetella Pertussis Not Detected (Not Detect); Chlamydophila pneumoniae Not Detected (Not Detect); Coronavirus 229E Not Detected (Not Detect); Coronavirus HKU1 Not Detected (Not Detect); Coronavirus NL63 Not Detected (Not Detect); Coronavirus OC43 Not Detected (Not Detect); Human Metapneumovirus Not Detected (Not Detect); Human Rhinovirus/Enterovirus Not Detected (Not Detect); Influenza A Subtype 2009 H1 Not Detected (Not Detect); Influenza B Not Detected (Not Detect); Mycoplasma pneumoniae Not Detected (Not Detect); Parainfluenza Virus 1 Not Detected (Not Detect); Parainfluenza Virus 2 Not Detected (Not Detect); Parainfluenza Virus 3 Not Detected (Not Detect); Parainfluenza Virus 4 Not Detected (Not Detect); Respiratory Syncytial Virus Not Detected (Not Detect); SARS-CoV-2 Not Detected (Not Detect)
[2021-09-29] MEDS: GuaiFENesin/Pseudophedrine TABLET PO SCH ×4 (01:10→19:56)
[2021-09-29] MEDS: *HR* LORazepam 0.5 MG TABLET PO PRN ×2 (01:11→19:56)
[2021-09-29] MEDS: Budesonide/Formoterol 80/4.5 1 PUFF INH IH SCH ×3 (04:21→20:37)
[2021-09-29 04:28] LABS: Basophils % 0.3 %; Eosinophils # 0.2 K/mcL (0.0-0.6); Eosinophils % 1.5 %; Hematocrit 37.8 % (35.3-44.9); Immature Granulocytes % 0.5 % (0-4); Lymphocytes # 2.2 K/mcL (0.6-4.6); Lymphocytes % 16.5 %; Mean Corpuscular HGB Conc 29.6 g/dL (31.6-35.5); Mean Corpuscular Hemoglobin 26.8 pg (28.0-33.3); Mean Corpuscular Volume 90.4 fL (83.0-100.0); Mean Platelet Volume 11.7 fL (9.4-12.4); Monocytes # 1.3 K/mcL (0.0-1.3); Monocytes % 9.8 %; Neutrophils # 9.5 K/mcL (1.6-8.9); Platelet Count 202 K/mcL (140-400); Red Blood Count 4.18 M/mcL (3.82-4.97); Segmented Neutrophils % 71.4 %; White Blood Count 13.3 K/mcL (4.3-11.1)
[2021-09-29 04:30] LABS: Hemoglobin 11.2 g/dL (11.5-15.4)
[2021-09-29 04:43] LABS: INR 1.1; Prothrombin Time 11.8 Seconds (9.4-12.1)
[2021-09-29 04:55] LABS: BUN/Creatinine Ratio 22 (6-26); Blood Urea Nitrogen 14 mg/dL (8-23); Calcium 9.6 mg/dL (8.6-10.3); Carbon Dioxide 35 mEq/L (23-29); Chloride 103 mEq/L (98-107); Glucose 122 mg/dL (70-105); Magnesium 1.8 mg/dL (1.6-2.6); Osmolality,Calculated 298 (280-300); Phosphorous 3.3 mg/dL (2.7-4.5); Potassium 4.1 mEq/L (3.5-5.1); Sodium 143 mEq/L (136-145); Troponin I < 0.03 ng/mL (< 0.04); eGFR For African Americans > 60 (> 60); eGFR For Non-African Americans > 60 (> 60)
[2021-09-29 05:04] LABS: Thyroid Stimulating Hormone 0.982 mcIU/mL (0.340-5.600)
[2021-09-29] MEDS: MethylPREDNISolone 40 MG/ML VIAL IVP SCH ×2 (06:11→17:25)
[2021-09-29] MEDS: Ipratropium/Albuterol Neb 3 ML IH PRN (07:44)
[2021-09-29] MEDS ORDERED: *HR* Enoxaparin 30 MG/0.3 ML SYRINGE SQ SCH (09:00)
[2021-09-29] MEDS: cefTRIAXone 1,000 MG in 0.9 % Sodium Chloride Mini Bag 100 ML IVPB SCH (09:23)
[2021-09-29] MEDS: Furosemide 40 MG TABLET PO SCH (09:24)
[2021-09-29] MEDS: Sennosides/Docusate Sodium TABLET PO SCH (09:24)
[2021-09-29] MEDS: Gabapentin 300 MG CAPSULE PO SCH ×3 (09:24→19:56)
[2021-09-29] MEDS: amLODIPine 5 MG TABLET PO SCH (09:24)
[2021-09-29] MEDS: Roflumilast [Daliresp] 500 MCG PO SCH (09:28)
[2021-09-29] MEDS: Azithromycin 500 MG in 0.9 % Sodium Chloride 250 ML IVPB SCH (15:03)
[2021-09-30] MEDS: Ipratropium/Albuterol Neb 3 ML IH PRN (04:30)
[2021-09-30] MEDS: MethylPREDNISolone 40 MG/ML VIAL IVP SCH (06:14)
[2021-09-30 09:03] LABS: Basophils % 0.2 %; Eosinophils % 0.1 %; Hematocrit 43.2 % (35.3-44.9); Hemoglobin 12.7 g/dL (11.5-15.4); Immature Granulocytes % 0.5 % (0-4); Lymphocytes # 1.4 K/mcL (0.6-4.6); Lymphocytes % 7.8 %; Mean Corpuscular HGB Conc 29.4 g/dL (31.6-35.5); Mean Corpuscular Hemoglobin 26.1 pg (28.0-33.3); Mean Corpuscular Volume 88.7 fL (83.0-100.0); Mean Platelet Volume 11.7 fL (9.4-12.4); Monocytes # 0.6 K/mcL (0.0-1.3); Monocytes % 3.3 %; Neutrophils # 15.6 K/mcL (1.6-8.9); Platelet Count 260 K/mcL (140-400); Red Blood Count 4.87 M/mcL (3.82-4.97); Red Cell Distribution Width 14.9 % (11.5-14.5); Segmented Neutrophils % 88.1 %; White Blood Count 17.7 K/mcL (4.3-11.1)
[2021-09-30 09:27] LABS: Alanine Aminotransferase 8 Units/L (7-52); Albumin 4.3 g/dL (3.5-5.7); Albumin/Globulin Ratio 1.5 (1.1-2.2); Alkaline Phosphatase 76 Units/L (34-104); Aspartate Amino Transferase 11 Units/L (13-39); BUN/Creatinine Ratio 21 (6-26); Bilirubin,Total 0.3 mg/dL (0.3-1.0); Blood Urea Nitrogen 14 mg/dL (8-23); Calcium 10.4 mg/dL (8.6-10.3); Carbon Dioxide 33 mEq/L (23-29); Chloride 100 mEq/L (98-107); Globulin 2.9 g/dL (2.4-3.5); Glucose 136 mg/dL (70-105); Magnesium 1.8 mg/dL (1.6-2.6); Osmolality,Calculated 293 (280-300); Phosphorous 3.1 mg/dL (2.7-4.5); Potassium 3.8 mEq/L (3.5-5.1); Sodium 140 mEq/L (136-145); Total Protein 7.2 g/dL (6.4-8.9); eGFR For African Americans > 60 (> 60); eGFR For Non-African Americans > 60 (> 60)
[2021-09-30] MEDS: Furosemide 40 MG TABLET PO SCH (09:39)
[2021-09-30] MEDS: *HR* LORazepam 0.5 MG TABLET PO PRN ×2 (09:39→14:23)
[2021-09-30] MEDS: GuaiFENesin/Pseudophedrine TABLET PO SCH ×3 (09:39→20:04)
[2021-09-30] MEDS: Gabapentin 300 MG CAPSULE PO SCH ×3 (09:39→20:04)
[2021-09-30] MEDS: Sennosides/Docusate Sodium TABLET PO SCH ×2 (09:40→20:04)
[2021-09-30] MEDS: cefTRIAXone 1,000 MG in 0.9 % Sodium Chloride Mini Bag 100 ML IVPB SCH (09:43)
[2021-09-30] MEDS: amLODIPine 5 MG TABLET PO SCH (09:43)
[2021-09-30] MEDS: Roflumilast [Daliresp] 500 MCG PO SCH (09:44)
[2021-09-30] MEDS: *HR* Enoxaparin 40 MG/0.4 ML SYRINGE SQ SCH (09:52)
[2021-09-30] MEDS: Budesonide/Formoterol 80/4.5 1 PUFF INH IH SCH ×2 (11:12→20:18)
[2021-09-30] MEDS: Azithromycin 500 MG in 0.9 % Sodium Chloride 250 ML IVPB SCH (14:23)
[2021-09-30] MEDS: Nicotine 14 MG PATCH.TD24 TD SCH (15:38)
[2021-09-30] MEDS: QUEtiapine Fumarate 25 MG TABLET PO SCH (20:04)
[2021-09-30] MEDS: Chlorhexidine Rinse 15 ML MOUTHWASH MM SCH (20:04)
[2021-10-01 06:42] LABS: Hematocrit 39.4 % (35.3-44.9)
[2021-10-01 06:43] LABS: VBG HCO3 31 mEq/L (21-27); VBG PCO2 45 mmHg (41-51); VBG PH 7.45 pH Units (7.32-7.42); VBG PO2 155 mmHg (25-50)
[2021-10-01 06:44] LABS: Hemoglobin 11.5 g/dL (11.5-15.4); Mean Corpuscular HGB Conc 29.2 g/dL (31.6-35.5); Mean Corpuscular Hemoglobin 26.5 pg (28.0-33.3); Mean Corpuscular Volume 90.8 fL (83.0-100.0); Mean Platelet Volume 11.8 fL (9.4-12.4); Platelet Count 200 K/mcL (140-400); Red Blood Count 4.34 M/mcL (3.82-4.97); Red Cell Distribution Width 15.1 % (11.5-14.5)
[2021-10-01 07:05] LABS: BUN/Creatinine Ratio 34 (6-26); Blood Urea Nitrogen 23 mg/dL (8-23); Calcium 9.6 mg/dL (8.6-10.3); Carbon Dioxide 33 mEq/L (23-29); Chloride 104 mEq/L (98-107); Glucose 90 mg/dL (70-105); Magnesium 1.9 mg/dL (1.6-2.6); Osmolality,Calculated 301 (280-300); Phosphorous 3.8 mg/dL (2.7-4.5); Potassium 3.4 mEq/L (3.5-5.1); Sodium 144 mEq/L (136-145); eGFR For African Americans > 60 (> 60); eGFR For Non-African Americans > 60 (> 60)
[2021-10-01] MEDS: Budesonide/Formoterol 80/4.5 1 PUFF INH IH SCH ×2 (07:32→20:09)
[2021-10-01] MEDS ORDERED: Potassium Chloride Elixir 20 MEQ/15 ML UDC PO ONE (07:42)
[2021-10-01 07:47] LABS: Folate 11.9 ng/mL (3.0-16.0)
[2021-10-01] MEDS: Ondansetron 4 MG/2 ML VIAL IVP PRN ×2 (09:12→15:56)
[2021-10-01] MEDS: GuaiFENesin/Pseudophedrine TABLET PO SCH ×3 (10:18→20:00)
[2021-10-01] MEDS: Multivit/Ca/Min/Fe/FA 1 TAB TABLET PO SCH (10:18)
[2021-10-01] MEDS: *HR* HYDROcodone/Acet 5/325 mg TABLET PO PRN ×2 (10:19→20:00)
[2021-10-01] MEDS: Sennosides/Docusate Sodium TABLET PO SCH ×2 (10:19→20:00)
[2021-10-01] MEDS: Lactobacillus 1 EACH CAP.SPRINK PO SCH ×2 (10:19→20:00)
[2021-10-01] MEDS: Gabapentin 100 MG CAPSULE PO SCH ×3 (10:19→20:00)
[2021-10-01] MEDS: amLODIPine 5 MG TABLET PO SCH (10:19)
[2021-10-01] MEDS: cefTRIAXone 1,000 MG in 0.9 % Sodium Chloride Mini Bag 100 ML IVPB SCH (10:20)
[2021-10-01] MEDS: Nicotine 14 MG PATCH.TD24 TD SCH (10:20)
[2021-10-01] MEDS: predniSONE 20 MG TABLET PO SCH (10:20)
[2021-10-01] MEDS: Furosemide 40 MG TABLET PO SCH (10:20)
[2021-10-01] MEDS: polyethylene glycoL 3350 17 GM POWD.PACK PO SCH (10:20)
[2021-10-01] MEDS: Chlorhexidine Rinse 15 ML MOUTHWASH MM SCH ×2 (10:20→20:00)
[2021-10-01] MEDS: Roflumilast [Daliresp] 500 MCG PO SCH (10:21)
[2021-10-01] MEDS: *HR* Enoxaparin 40 MG/0.4 ML SYRINGE SQ SCH (10:21)
[2021-10-01] MEDS: Azithromycin 500 MG in 0.9 % Sodium Chloride 250 ML IVPB SCH (15:56)
[2021-10-01] MEDS: QUEtiapine Fumarate 25 MG TABLET PO SCH (20:00)
[2021-10-01] MEDS ORDERED: *HR* LORazepam 2 MG/ML VIAL IVP ONE (20:30)
[2021-10-02 04:18] LABS: Hematocrit 36.5 % (35.3-44.9); Hemoglobin 10.8 g/dL (11.5-15.4); Mean Corpuscular HGB Conc 29.6 g/dL (31.6-35.5); Mean Corpuscular Hemoglobin 26.4 pg (28.0-33.3); Mean Corpuscular Volume 89.2 fL (83.0-100.0); Mean Platelet Volume 11.7 fL (9.4-12.4); Platelet Count 193 K/mcL (140-400); Red Blood Count 4.09 M/mcL (3.82-4.97); Red Cell Distribution Width 14.9 % (11.5-14.5)
[2021-10-02 04:37] LABS: BUN/Creatinine Ratio 35 (6-26); Blood Urea Nitrogen 24 mg/dL (8-23); Calcium 9.4 mg/dL (8.6-10.3); Carbon Dioxide 34 mEq/L (23-29); Chloride 99 mEq/L (98-107); Glucose 109 mg/dL (70-105); Magnesium 1.9 mg/dL (1.6-2.6); Osmolality,Calculated 293 (280-300); Phosphorous 4.2 mg/dL (2.7-4.5); Potassium 3.7 mEq/L (3.5-5.1); Sodium 139 mEq/L (136-145); eGFR For African Americans > 60 (> 60); eGFR For Non-African Americans > 60 (> 60)
[2021-10-02] MEDS: Budesonide/Formoterol 80/4.5 1 PUFF INH IH SCH ×2 (07:36→20:16)
[2021-10-02] MEDS: *HR* Enoxaparin 40 MG/0.4 ML SYRINGE SQ SCH (08:18)
[2021-10-02] MEDS: Chlorhexidine Rinse 15 ML MOUTHWASH MM SCH ×2 (08:18→21:05)
[2021-10-02] MEDS: Multivit/Ca/Min/Fe/FA 1 TAB TABLET PO SCH (08:19)
[2021-10-02] MEDS: Sennosides/Docusate Sodium TABLET PO SCH ×2 (08:20→21:05)
[2021-10-02] MEDS: Furosemide 40 MG TABLET PO SCH (08:20)
[2021-10-02] MEDS: Lactobacillus 1 EACH CAP.SPRINK PO SCH ×2 (08:20→21:05)
[2021-10-02] MEDS: GuaiFENesin/Pseudophedrine TABLET PO SCH ×3 (08:20→21:05)
[2021-10-02] MEDS: Gabapentin 100 MG CAPSULE PO SCH ×3 (08:20→21:05)
[2021-10-02] MEDS: amLODIPine 5 MG TABLET PO SCH (08:20)
[2021-10-02] MEDS: Roflumilast [Daliresp] 500 MCG PO SCH (08:21)
[2021-10-02] MEDS: predniSONE 20 MG TABLET PO SCH (08:21)
[2021-10-02] MEDS: Nicotine 14 MG PATCH.TD24 TD SCH (08:21)
[2021-10-02] MEDS: cefTRIAXone 1,000 MG in 0.9 % Sodium Chloride Mini Bag 100 ML IVPB SCH (08:22)
[2021-10-02] MEDS: polyethylene glycoL 3350 17 GM POWD.PACK PO SCH (08:22)
[2021-10-02] MEDS: Ondansetron 4 MG/2 ML VIAL IVP PRN (13:14)
[2021-10-02] MEDS ORDERED: Haloperidol Lactate 5 MG/ML VIAL IVP ONE (15:50)
[2021-10-02] MEDS: QUEtiapine Fumarate 25 MG TABLET PO SCH (21:05)
[2021-10-03 02:58] LABS: Hematocrit 36.9 % (35.3-44.9); Hemoglobin 10.7 g/dL (11.5-15.4); Mean Corpuscular Hemoglobin 26.1 pg (28.0-33.3); Platelet Count 206 K/mcL (140-400); Red Cell Distribution Width 14.6 % (11.5-14.5); White Blood Count 12.1 K/mcL (4.3-11.1)
[2021-10-03 03:14] LABS: BUN/Creatinine Ratio 29 (6-26); Blood Urea Nitrogen 15 mg/dL (8-23); Calcium 9.4 mg/dL (8.6-10.3); Carbon Dioxide 34 mEq/L (23-29); Chloride 101 mEq/L (98-107); Glucose 94 mg/dL (70-105); Magnesium 2.1 mg/dL (1.6-2.6); Osmolality,Calculated 293 (280-300); Phosphorous 3.2 mg/dL (2.7-4.5); Potassium 3.8 mEq/L (3.5-5.1); Sodium 141 mEq/L (136-145); eGFR For African Americans > 60 (> 60); eGFR For Non-African Americans > 60 (> 60)
[2021-10-03] MEDS ORDERED: Haloperidol Lactate 5 MG/ML VIAL IVP ONE (06:40)
[2021-10-03] MEDS: Budesonide/Formoterol 80/4.5 1 PUFF INH IH SCH ×2 (07:56→19:58)
[2021-10-03] MEDS: Sennosides/Docusate Sodium TABLET PO SCH ×2 (08:17→21:39)
[2021-10-03] MEDS: amLODIPine 5 MG TABLET PO SCH (08:17)
[2021-10-03] MEDS: GuaiFENesin/Pseudophedrine TABLET PO SCH ×3 (08:17→21:39)
[2021-10-03] MEDS: predniSONE 20 MG TABLET PO SCH (08:18)
[2021-10-03] MEDS: Furosemide 40 MG TABLET PO SCH (08:18)
[2021-10-03] MEDS: Multivit/Ca/Min/Fe/FA 1 TAB TABLET PO SCH (08:18)
[2021-10-03] MEDS: Gabapentin 100 MG CAPSULE PO SCH ×3 (08:18→21:39)
[2021-10-03] MEDS: cefTRIAXone 1,000 MG in 0.9 % Sodium Chloride Mini Bag 100 ML IVPB SCH (08:18)
[2021-10-03] MEDS: Roflumilast [Daliresp] 500 MCG PO SCH (08:19)
[2021-10-03] MEDS: *HR* Enoxaparin 40 MG/0.4 ML SYRINGE SQ SCH (08:20)
[2021-10-03] MEDS: Chlorhexidine Rinse 15 ML MOUTHWASH MM SCH ×2 (08:20→21:39)
[2021-10-03] MEDS: Lactobacillus 1 EACH CAP.SPRINK PO SCH ×2 (08:20→21:39)
[2021-10-03] MEDS: polyethylene glycoL 3350 17 GM POWD.PACK PO SCH (08:21)
[2021-10-03] MEDS: Haloperidol Lactate 5 MG/ML VIAL IVP PRN (08:23)
[2021-10-03] MEDS: Nicotine 14 MG PATCH.TD24 TD SCH (08:24)
[2021-10-03] MEDS: QUEtiapine Fumarate 25 MG TABLET PO SCH (21:39)
[2021-10-04] MEDS: Budesonide/Formoterol 80/4.5 1 PUFF INH IH SCH ×2 (07:26→19:31)
[2021-10-04] MEDS: Haloperidol Lactate 5 MG/ML VIAL IVP PRN (07:53)
[2021-10-04] MEDS: amLODIPine 5 MG TABLET PO SCH (09:37)
[2021-10-04] MEDS: Chlorhexidine Rinse 15 ML MOUTHWASH MM SCH (09:47)
[2021-10-04] MEDS: polyethylene glycoL 3350 17 GM POWD.PACK PO SCH (09:49)
[2021-10-04] MEDS: *HR* Enoxaparin 40 MG/0.4 ML SYRINGE SQ SCH (09:49)
[2021-10-04] MEDS: Multivit/Ca/Min/Fe/FA 1 TAB TABLET PO SCH (09:49)
[2021-10-04] MEDS: Thiamine (B-1) 100 MG TABLET PO SCH (09:50)
[2021-10-04] MEDS: Gabapentin 100 MG CAPSULE PO SCH ×2 (09:50→15:17)
[2021-10-04] MEDS: Nicotine 14 MG PATCH.TD24 TD SCH (09:50)
[2021-10-04] MEDS: Lactobacillus 1 EACH CAP.SPRINK PO SCH (09:50)
[2021-10-04] MEDS: QUEtiapine Fumarate 25 MG TABLET PO SCH (09:51)
[2021-10-04] MEDS: Furosemide 40 MG TABLET PO SCH (09:51)
[2021-10-04] MEDS: Roflumilast [Daliresp] 500 MCG PO SCH (09:51)
[2021-10-04] MEDS: predniSONE 20 MG TABLET PO SCH (09:56)
[2021-10-04] MEDS: Sennosides/Docusate Sodium TABLET PO SCH (09:56)
[2021-10-04] MEDS: GuaiFENesin/Pseudophedrine TABLET PO SCH ×2 (10:04→15:17)
[2021-10-04] MEDS ORDERED: Gadolinium Contrast Agent (WT Based) IV PRN (10:10)
[2021-10-04] MEDS ORDERED: *HR* LORazepam 2 MG/ML VIAL IVP ONE (10:33)
[2021-10-04] MEDS ORDERED: *HR* LORazepam 2 MG/ML VIAL ONE (10:33)
[2021-10-05 02:43] VITALS: TEMP 98.1
[2021-10-05 03:09] LABS: Basophils % 0.2 %; Eosinophils # 0.1 K/mcL (0.0-0.6); Eosinophils % 0.5 %; Hematocrit 36.8 % (35.3-44.9); Immature Granulocytes % 0.6 % (0-4); Lymphocytes # 2.2 K/mcL (0.6-4.6); Lymphocytes % 17.6 %; Mean Corpuscular HGB Conc 29.9 g/dL (31.6-35.5); Mean Corpuscular Hemoglobin 26.3 pg (28.0-33.3); Mean Corpuscular Volume 87.8 fL (83.0-100.0); Mean Platelet Volume 11.4 fL (9.4-12.4); Monocytes # 1.2 K/mcL (0.0-1.3); Monocytes % 9.5 %; Platelet Count 214 K/mcL (140-400); Red Blood Count 4.19 M/mcL (3.82-4.97); Red Cell Distribution Width 14.5 % (11.5-14.5); Segmented Neutrophils % 71.6 %; White Blood Count 12.6 K/mcL (4.3-11.1)
[2021-10-05 03:26] LABS: Alanine Aminotransferase 11 Units/L (7-52); Albumin 3.4 g/dL (3.5-5.7); Albumin/Globulin Ratio 1.4 (1.1-2.2); Alkaline Phosphatase 55 Units/L (34-104); Aspartate Amino Transferase 11 Units/L (13-39); BUN/Creatinine Ratio 22 (6-26); Bilirubin,Total 0.2 mg/dL (0.3-1.0); Blood Urea Nitrogen 12 mg/dL (8-23); Calcium 9.5 mg/dL (8.6-10.3); Carbon Dioxide 37 mEq/L (23-29); Chloride 100 mEq/L (98-107); Globulin 2.5 g/dL (2.4-3.5); Glucose 85 mg/dL (70-105); Magnesium 2.1 mg/dL (1.6-2.6); Osmolality,Calculated 293 (280-300); Phosphorous 3.3 mg/dL (2.7-4.5); Potassium 3.3 mEq/L (3.5-5.1); Sodium 142 mEq/L (136-145); Total Protein 5.9 g/dL (6.4-8.9); eGFR For African Americans > 60 (> 60); eGFR For Non-African Americans > 60 (> 60)
[2021-10-05] MEDS: Chlorhexidine Rinse 15 ML MOUTHWASH MM SCH ×3 (03:49→20:23)
[2021-10-05] MEDS: Lactobacillus 1 EACH CAP.SPRINK PO SCH ×3 (03:50→19:59)
[2021-10-05] MEDS: GuaiFENesin/Pseudophedrine TABLET PO SCH ×4 (03:50→19:59)
[2021-10-05] MEDS: Gabapentin 100 MG CAPSULE PO SCH ×4 (03:50→19:59)
[2021-10-05] MEDS: QUEtiapine Fumarate 25 MG TABLET PO SCH ×3 (03:50→20:00)
[2021-10-05] MEDS: Sennosides/Docusate Sodium TABLET PO SCH ×3 (03:50→20:00)
[2021-10-05] MEDS: Budesonide/Formoterol 80/4.5 1 PUFF INH IH SCH ×2 (08:09→22:24)
[2021-10-05] MEDS: Thiamine (B-1) 100 MG TABLET PO SCH (08:51)
[2021-10-05] MEDS: Haloperidol Lactate 5 MG/ML VIAL IVP PRN ×2 (08:51→19:59)
[2021-10-05] MEDS: polyethylene glycoL 3350 17 GM POWD.PACK PO SCH (08:53)
[2021-10-05] MEDS: Furosemide 40 MG TABLET PO SCH (08:53)
[2021-10-05] MEDS: Nicotine 14 MG PATCH.TD24 TD SCH (08:53)
[2021-10-05] MEDS: *HR* Enoxaparin 40 MG/0.4 ML SYRINGE SQ SCH (08:54)
[2021-10-05] MEDS: *HR* HYDROcodone/Acet 5/325 mg TABLET PO PRN ×2 (08:54→19:59)
[2021-10-05] MEDS: amLODIPine 5 MG TABLET PO SCH (08:54)
[2021-10-05] MEDS: Multivit/Ca/Min/Fe/FA 1 TAB TABLET PO SCH (08:54)
[2021-10-05] MEDS: Roflumilast [Daliresp] 500 MCG PO SCH (08:56)
[2021-10-06] MEDS: Budesonide/Formoterol 80/4.5 1 PUFF INH IH SCH (08:04)
[2021-10-06] MEDS: Furosemide 40 MG TABLET PO SCH (09:43)
[2021-10-06] MEDS: Multivit/Ca/Min/Fe/FA 1 TAB TABLET PO SCH (09:43)
[2021-10-06] MEDS: Gabapentin 100 MG CAPSULE PO SCH (09:43)
[2021-10-06] MEDS: Thiamine (B-1) 100 MG TABLET PO SCH (09:43)
[2021-10-06] MEDS: GuaiFENesin/Pseudophedrine TABLET PO SCH (09:43)
[2021-10-06] MEDS: Lactobacillus 1 EACH CAP.SPRINK PO SCH (09:43)
[2021-10-06] MEDS: amLODIPine 5 MG TABLET PO SCH (09:43)
[2021-10-06] MEDS: Chlorhexidine Rinse 15 ML MOUTHWASH MM SCH (09:44)
[2021-10-06] MEDS: polyethylene glycoL 3350 17 GM POWD.PACK PO SCH (09:44)
[2021-10-06] MEDS: *HR* Enoxaparin 40 MG/0.4 ML SYRINGE SQ SCH (09:44)
[2021-10-06] MEDS: Nicotine 14 MG PATCH.TD24 TD SCH ×2 (09:44→09:55)
[2021-10-06] MEDS: Sennosides/Docusate Sodium TABLET PO SCH (09:44)
[2021-10-06] MEDS: Roflumilast [Daliresp] 500 MCG PO SCH (09:45)
[2021-10-06] MEDS: QUEtiapine Fumarate 25 MG TABLET PO SCH (09:45)
[2021-10-06] MEDS ORDERED: QUEtiapine Fumarate 100 MG TABLET PO SCH (09:45)
[2021-10-06 09:53] VITALS: BP 116/70; PULSE 98; O2SAT 98
== END 2021-10-06 14:47 | disposition hospice, home (50) | DRG 871 ==
LOC: 3NENU 17:18 → EMEROOARM 17:18 → SUATTDRO 21:35 → 3NENU 22:40
PROVIDERS: ADMIT Internal Medicine; ATTEND Internal Medicine